=== PATIENT | male | born 1995 | race Caucasian/White ===

== ENCOUNTER 2023-12-04 05:37 | Emergency (ER) | payer SELFPAY ==
[~2023-12-04] VITALS: Ht 180.3 cm; Wt 93.2 kg
[2023-12-04 05:44] VITALS: TEMP 97.8
[2023-12-04] MEDS ORDERED: diphenhydrAMINE 50 MG/ML 1 ML VIAL IV ONE (06:15)
[2023-12-04] MEDS ORDERED: dexAMETHasone 10 MG/ML VIAL IV ONE (06:15)
[2023-12-04 06:55] VITALS: BP 127/96; PULSE 65
== END 2023-12-04 06:55 | disposition home or self-care (01) ==
LOC: COL.ER 05:37
DX: T78.40XA Allergy, unspecified, initial encounter (principal)
CPT/HCPCS: J1100; J1200